=== PATIENT | female | born 2000 | race Caucasian/White ===

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

== ENCOUNTER 2022-05-05 11:14 | Outpatient (CLI) | payer OTHER ==
[2022-05-05 18:25] LABS: BASOPHILS % (AUTO) 0.6 %; EOSINOPHILS % (AUTO) 0.4 %; HCT - HEMATOCRIT 43.1 % (37.0-47.0); HGB - HEMOGLOBIN 13.9 g/dL (12.0-16.0); LYMPHOCYTES # (AUTO) 1.6 10^3/uL (1.5-3.5); LYMPHOCYTES % (AUTO) 23.1 %; MEAN CORPUSCULAR HEMOGLOBIN 29.9 pg (27.0-31.0); MEAN CORPUSCULAR HGB CONC 32.3 g/dL (32.0-36.0); MEAN CORPUSCULAR VOLUME 92.7 fL (81.0-99.0); MONOCYTES # (AUTO) 0.5 10^3/uL (0.0-1.0); MONOCYTES % (AUTO) 7.5 %; NEUTROPHILS # (AUTO) 4.8 10^3/uL (1.5-6.6); NEUTROPHILS % (AUTO) 68.3 %; PLT - PLATELET COUNT 289 10^3/uL (130-450); RED BLOOD COUNT 4.65 10^6/uL (4.20-5.40); RED CELL DISTRIBUTION WIDTH 13.1 % (12.0-15.0)
[2022-05-05 18:47] LABS: THYROID STIMULATING HORMONE 2.47 uIU/mL (0.34-5.60)
[2022-05-05 18:49] LABS: FREE T3 3.38 pg/mL (2.5-3.9)
[2022-05-05 18:50] LABS: FREE T4 (FREE THYROXINE) 0.85 ng/dL (0.58-1.64)
[2022-05-05 18:51] LABS: ALBUMIN 4.3 g/dL (3.2-5.5); ALBUMIN/GLOBULIN RATIO 1.3 (1.0-2.2); ALKALINE PHOSPHATASE 56 IU/L (42-121); ALT ALANINE AMINOTRANSFERASE 37 IU/L (10-60); AST ASPARTATE AMINOTRANSFERASE 111 IU/L (10-42); BILIRUBIN,TOTAL 0.7 mg/dL (0.2-1.0); BUN - BLOOD UREA NITROGEN 9 mg/dL (6-20); CARBON DIOXIDE - CO2 27 mmol/L (21-32); CHLORIDE 102 mmol/L (101-111); CHOL/HDL RATIO 1.7 (<4.4); CHOLESTEROL 135 mg/dL; CREATININE 0.7 mg/dL (0.4-1.0); GFR - MDRD 107 (>89); GLUCOSE 82 mg/dL (70-100); HDL CHOLESTEROL 79 mg/dL; LDL CHOLESTEROL,CALCULATED 43 mg/dL; LDL/HDL RATIO 0.5 (<4.4); POTASSIUM 3.7 mmol/L (3.5-5.0); SODIUM 136 mmol/L (135-145); TOTAL PROTEIN 7.6 g/dL (6.7-8.2); TRIGLYCERIDES 64 mg/dL; VLDL CHOLESTEROL 13 mg/dL
== END 2022-05-05 11:15 | disposition home or self-care (01) ==
LOC: LAB.N 11:14
PROVIDERS: ATTEND Nurse Practitioner
DX: R53.83 Other fatigue (principal); E03.9 Hypothyroidism, unspecified; R74.8 Abnormal levels of other serum enzymes; Z13.220 Encounter for screening for lipoid disorders
CPT/HCPCS: 36415; 80053; 80061; 82977; 83721; 84439; 84443; 84481; 85025

== ENCOUNTER 2022-08-09 08:00 | Outpatient (CLI) | payer OTHER ==
[2022-08-11 05:10] LABS: HCV AB <0.1 s/co ratio (0.0-0.9); HIV SCREEN 4TH GENERATION Non Reactive (Non Reactive); HSV 2 IGG TYPE SPEC <0.91 index (0.00-0.90); RPR Non Reactive (Non Reactive)
[2022-08-11 17:24] LABS: CHLAMYDIA TRACHOMATIS DNA NEGATIVE (NEGATIVE); NEISSERIA GONORRHOEAE DNA NEGATIVE (NEGATIVE); TRICHOMONAS VAGINALIS DNA NEGATIVE (NEGATIVE)
== END 2022-08-09 23:59 | disposition home or self-care (01) ==
LOC: LAB.N 08:00
PROVIDERS: ATTEND Physician Assistant
DX: Z11.3 Encounter for screening for infections with a predominantly sexual mode of transmission (principal)
CPT/HCPCS: 36415; 86592; 86695; 86696; 86803; 87389; 87491; 87591; 87661

== ENCOUNTER 2023-01-07 15:10 | Emergency (ER) | payer MEDICAID, OTHER ==
[2023-01-07] MEDS ORDERED: SODIUM CHLORIDE 0.9% 1,000 ML IV STA (15:32)
[2023-01-07] MEDS ORDERED: KETOROLAC 15 MG/ML VIAL IVP STA (15:32)
[2023-01-07] MEDS ORDERED: DEXAMETHASONE 10 MG/ML VIAL IVP STA (15:32)
[2023-01-07] MEDS ORDERED: CLINDAMYCIN 900 MG/50 ML 50 ML IV ONE (15:32)
[2023-01-07] MEDS ORDERED: PHENOL THROAT SPRAY 177 ML MM STA (15:33)
--- NOTE | 2023-01-07 15:34 | ED Physician Documentation ---
PD HPI HEENT - Stated complaint Stated Complaint: SORE THROAT - Chief complaint Chief Complaint: Heent - History obtained from History obtained from: Patient, Family - Additional information Additional information: Otherwise healthy 22-year-old has had a sore throat for 2 weeks that was getting better, and then got worse again about 3 days ago with inability to speak and right-sided throat swelling. Some subjective fevers. Most of the history is from the mom as the patient cannot talk. 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 : None HEENT: None Psych: None Musculoskeletal: None Derm: None - Past Surgical History Past Surgical History: No - Present Medications Home Medications: Ambulatory Orders Medication Instructions Recorded Confirmed Control 1 tab PO DAILY 01/03/19 cephALEXin [Keflex] 500 mg PO Q6H #28 capsule 01/03/19 Clindamycin Palmitate HCl [Cleocin 20 ml PO TID #600 ml 01/07/23 Palmitate] Ibuprofen Oral Susp [Motrin Oral 20 ml PO Q6H PRN #300 ml 01/07/23 Susp] prednisoLONE [Prednisolone] 15 ml PO DAILY #60 ml 01/07/23 - Allergies Allergies/Adverse Reactions: Allergies Allergy/AdvReac Type Severity Reaction Status Date / Time Penicillins Allergy Unknown Unknown Verified 01/07/23 15:23 - Social History Does the pt smoke?: No Smoking Status: Never smoker Does the pt drink ETOH?: No Does the pt have substance abuse?: No - Immunizations Immunizations are current?: Yes - POLST Patient has POLST: No PD ED PE NORMAL - Vitals Vital signs reviewed: Yes - General General: Alert and oriented X 3, Other (She appears nontoxic but has a hot potato voice) - HEENT HEENT: Other (There is a large right-sided peritonsillar abscess. She does have some trismus with about 3 cm between the incisors.) - Neuro Neuro: Alert and oriented X 3 Results - Vitals Vitals: Vital Signs - 24 hr 01/07/23 01/07/23 15:19 15:28 Temperature 37.6 C Heart Rate 133 H Respiratory 16 16 Rate Blood Pressure 128/74 O2 Saturation 99 98 Oxygen O2 Source Room air - Labs Labs: Laboratory Tests 01/07/23 01/07/23 15:38 15:38 WBC 26.9 H RBC 4.82 Hgb 14.7 Hct 44.4 MCV 92.1 MCH 30.5 MCHC 33.1 RDW 12.3 Plt Count 337 MPV 9.5 Sodium 136 Potassium 3.7 Chloride 98 L Carbon Dioxide 25 Anion Gap 13.0 BUN 12 Creatinine 1.0 Estimated GFR (MDRD) 70 L Glucose 83 Calcium 9.6 Procedures - General procedure General procedure: After verbal informed consent the patient was placed in supine position and topical Chloraseptic was used on the throat. Then the pointed area of the peritonsillar abscess was locally infiltrated with buffered lidocaine and then an 18-gauge shielded needle was used to access the abscess with purulent material. Not much went into the syringe but a lot came out after removal of the syringe. PD Medical Decision Making - ED course ED course: 22-year-old woman with large right-sided peritonsillar abscess. Treated here with IV fluids, dexamethasone, clindamycin noting penicillin allergy and Toradol with improvement in her ability to phonate and trismus. Subsequently a needle aspiration was done and she tolerated this very well. CBC notable for significant leukocytosis. BMP basically normal. Departure - Departure Disposition: 01 Home, Self Care Clinical Impression: Peritonsillar abscess Condition: Good Record reviewed to determine appropriate education?: Yes Instructions: ED Peritonsillar Abscess Follow-Up: ANNE KEARNS [Physician No Access] - Prescriptions: Clindamycin Palmitate HCl [Cleocin Palmitate] 20 ml PO TID #600 ml Ibuprofen Oral Susp [Motrin Oral Susp] 20 ml PO Q6H PRN #300 ml PRN Reason: pain prednisoLONE [Prednisolone] 15 ml PO DAILY #60 ml Comments: Call the oral maxillofacial surgeon listed on this form tomorrow morning for next available appointment. Return for new or worsening symptoms. Forms: Activity restrictions
[2023-01-07] MEDS ORDERED: BUFFERED LIDOCAINE 10 ML SYRINGE SUBQ STA (15:39)
[2023-01-07 15:41] LABS: BASOPHILS % (AUTO) 0.3 %; EOSINOPHILS % (AUTO) 0.1 %; HCT - HEMATOCRIT 44.4 % (37.0-47.0); HGB - HEMOGLOBIN 14.7 g/dL (12.0-16.0); MEAN CORPUSCULAR HEMOGLOBIN 30.5 pg (27.0-31.0); MEAN CORPUSCULAR HGB CONC 33.1 g/dL (32.0-36.0); MEAN CORPUSCULAR VOLUME 92.1 fL (81.0-99.0); MEAN PLATELET VOLUME 9.5 fL (7.9-10.8); MONOCYTES % (AUTO) 4.8 %; NEUTROPHILS % (AUTO) 88.2 %; PLT - PLATELET COUNT 337 10^3/uL (130-450); RED BLOOD COUNT 4.82 10^6/uL (4.20-5.40); RED CELL DISTRIBUTION WIDTH 12.3 % (12.0-15.0); WHITE BLOOD COUNT 26.9 x10^3/uL (4.8-10.8)
[2023-01-07 15:44] LABS: ABNORMAL LYMPHS % (MANUAL) 0 %
[2023-01-07 15:49] LABS: CALCIUM 9.6 mg/dL (8.5-10.3); POTASSIUM 3.7 mmol/L (3.5-5.0)
[2023-01-07 16:55] LABS: BAND NEUTROPHILS % (MANUAL) 4 %; LYMPHOCYTES # (MANUAL) 1.9 10^3/uL (1.5-3.5); LYMPHOCYTES % (MANUAL) 7 %; MONOCYTES # (MANUAL) 1.6 10^3/uL (0.0-1.0); NEUTROPHILS # (MANUAL) 23.4 10^3/uL (1.5-6.6); PLATELET ESTIMATE, MANUAL NORMAL (130-450,000) (NORMAL); PLATELET MORPHOLOGY NORMAL APPEARANCE (NORMAL); RBC MORPHOLOGY (MULTIPLE) NORMAL APPEARANCE (NORMAL)
[2023-01-07 16:56] LABS: DIFFERENTIAL COMMENT MANUAL DIFFERENTIAL; WBC MORPHOLOGY (MULTIPLE) 1+ TOXIC GRANULATION (NORMAL)
[2023-01-07 17:03] VITALS: BP 123/85
== END 2023-01-07 17:04 | disposition home or self-care (01) ==
LOC: ED 15:10
DX: J36 Peritonsillar abscess (principal)
CPT/HCPCS: 36415; 42700; 80048; 85025; 96365; 96375; 99284; A9270

== ENCOUNTER 2023-05-07 08:00 | Outpatient (CLI) | payer MEDICAID ==
[2023-05-08 10:05] LABS: BACTERIAL VAGINOSIS DNA NEGATIVE (NEGATIVE); CANDIDA GLABRATA DNA NEGATIVE (NEGATIVE); CANDIDA GROUP DNA NEGATIVE (NEGATIVE); CANDIDA KRUSEI DNA NEGATIVE (NEGATIVE); TRICHOMONAS VAGINALIS DNA NEGATIVE (NEGATIVE)
[2023-05-08 14:24] LABS: CHLAMYDIA TRACHOMATIS DNA NEGATIVE (NEGATIVE); NEISSERIA GONORRHOEAE DNA NEGATIVE (NEGATIVE)
== END 2023-05-07 23:59 | disposition home or self-care (01) ==
LOC: LAB.N 08:00
PROVIDERS: ATTEND Nurse Practitioner
DX: R30.0 Dysuria (principal); N89.8 Other specified noninflammatory disorders of vagina
CPT/HCPCS: 81514; 87086; 87181; 87491; 87591; 87661

== ENCOUNTER 2023-08-18 08:00 | Outpatient (CLI) | payer MEDICAID | END 2023-08-18 23:59 | disposition home or self-care (01) | LOC: LAB.N 08:00 | PROVIDERS: ATTEND Nurse Practitioner | DX: L73.9 Follicular disorder, unspecified (principal) | CPT/HCPCS: 87252 ==